=== PATIENT | male | born 1995 | race Caucasian/White ===

== ENCOUNTER 2017-10-16 12:34 | Emergency (ER) | payer SELFPAY ==
[2017-10-16 13:23] LABS: #Eosinphils 0.1 thou/uL (0.0-0.7); #Lymphocytes 1.1 thou/uL (1.20-3.40); #Monocytes 0.4 thou/uL (0.11-0.59); #Neutrophils 3.1 thou/uL (1.40-6.50); %Basophils 0.5 % (0.0-1.0); %Eosinophils 1.8 % (0.0-10.0); %Lymphocytes 23.6 % (21.0-51.0); %Neutrophils 65.1 % (42.0-75.0); Hemoglobin 15.4 g/dL (14.0-18.0); Mean Corpuscular HGB CONC 33.2 g/dL (32.0-36.0); Mean Corpuscular Hemoglobin 28.2 pg (27.0-31.0); Mean Platelet Volume 6.8 fL (7.4-10.4); Platelet Count 289 thou/uL (130-400); RBC Distribution Width 11.9 % (11.5-14.5); Red Blood Cell (RBC) Count 5.45 mill/uL (4.70-6.10); White Blood Cell (WBC) Count 4.8 thou/uL (4.8-10.8)
[2017-10-16 13:49] LABS: ALT (SGPT) 11 U/L (8-55); AST (SGOT) 17 U/L (5-34); Albumin 4.7 g/dL (3.5-5.0); Alkaline Phosphatase 110 U/L (40-150); Anion Gap 11 mmol/L (10-20); BUN (Urea Nitrogen) 8 mg/dL (8.9-20.6); Bilirubin, Total 0.4 mg/dL (0.2-1.2); CKMB 0.6 ng/mL (0-6.6); Calc. Creatinine Clearance 0 mL/min (70-130); Calcium 9.9 mg/dL (7.8-10.44); Carbon Dioxide 28 mmol/L (22-29); Chloride 103 mmol/L (98-107); Estimated GFR-MDRD Greater than 90; Globulin 2.8 g/dL (2.4-3.5); Glucose 100 mg/dL (70-105); Potassium 4.2 mmol/L (3.5-5.1); Protein, Total 7.5 g/dL (6.0-8.3); Sodium 138 mmol/L (136-145); Troponin I Less than 0.010 ng/mL (< 0.028)
--- NOTE | 2017-10-16 15:30 | CT ---
CT BRAIN NONCONTRAST: Date: 10/16/17 HISTORY: 22-year-old male with headache and dizziness with nausea. FINDINGS: The ventricles are normal in size and configuration. There is no midline shift or any other mass eff ect. There is no evidence of acute intracranial hemorrhage, large cortical infarct, or extraaxial fl uid collection. The quijano matter /white matter differentiation is maintained. The calvarium is intac t. The tympanomastoid cavities, and the upper portions of the paranasal sinuses included in these im ages, are grossly clear. IMPRESSION: Normal. jn [] POS: [facility]
== END 2017-10-16 16:02 | disposition home or self-care (01) ==
LOC: ERS 12:34
DX: R51 Headache (principal); F41.9 Anxiety disorder, unspecified; F17.220 Nicotine dependence, chewing tobacco, uncomplicated
CPT/HCPCS: 36415; 70450; 80053; 82553; 84484; 85025; 93005

== ENCOUNTER 2018-01-22 22:44 | Emergency (ER) | payer SELFPAY ==
[2018-01-22] MEDS ORDERED: Ondansetron ODT 4 MG TAB ONE ×2 (23:18→23:19)
== END 2018-01-22 23:48 | disposition home or self-care (01) ==
LOC: ERS 22:44
DX: J30.9 Allergic rhinitis, unspecified (principal); R11.2 Nausea with vomiting, unspecified; Z71.6 Tobacco abuse counseling; F17.220 Nicotine dependence, chewing tobacco, uncomplicated
CPT/HCPCS: 99406; Q0162

== ENCOUNTER 2018-02-01 00:38 | Emergency (ER) | payer SELFPAY ==
[2018-02-01] MEDS ORDERED: Metoclopramide HCl 10 MG/2 ML VIAL ONE (02:41)
[2018-02-01] MEDS ORDERED: Acetaminophen 500 MG TAB ONE (02:41)
--- NOTE | 2018-02-01 08:16 | CT ---
CT HEAD NONCONTRAST: Comparison: 10-16-17 Clinical history: Headache. FINDINGS: No evidence of ventriculomegaly, mass effect, midline shift or acute intracranial hemorrhage. There i s extensive opacification of the paranasal sinuses. IMPRESSION: 1. No acute intracranial hemorrhage or mass effect. 2. Prominent paranasal sinus inflammation. Correlate clinically as this may explain source for headac hes. Given the degree of paranasal sinus disease, follow up with ENT consultation would prove useful. POS: [facility]
== END 2018-02-01 03:50 | disposition home or self-care (01) ==
LOC: ERS 00:38
DX: J32.9 Chronic sinusitis, unspecified (principal); F17.220 Nicotine dependence, chewing tobacco, uncomplicated
CPT/HCPCS: 70450; 96365; J2765